=== PATIENT | female | born 1940 | race Caucasian/White ===

== ENCOUNTER 2019-05-22 09:53 | Outpatient (CLI) | payer MEDICARE, SELFPAY ==
[2019-05-22 10:10] LABS: Basophils Absolute Auto 0.05 K/mm3 (0.00-0.10); Basophils Percent Auto 0.6 % (0.0-1.0); Eosinophils Absolute Auto 0.16 K/mm3 (0.02-0.50); Eosinophils Percent Auto 1.8 % (1.0-6.0); Hemoglobin 14.9 g/dL (11.7-13.8); Immature Granulocyte Absolute 0.06 K/mm3 (0.00-0.00); Immature Granulocyte Percent A 0.7 % (0.0-0.0); Lymphocytes Absolute Auto 2.85 K/mm3 (1.10-4.50); Lymphocytes Percent Auto 32.2 % (18.0-42.0); Mean Corpuscular HGB Conc 33.1 g/dL (32.0-36.0); Mean Corpuscular Volume 93.8 fL (78.0-102.0); Mean Platelet Volume 10.8 fl (9.2-11.8); Monocytes Absolute Auto 1.02 K/mm3 (0.10-0.90); Monocytes Percent Auto 11.5 % (2.0-11.0); Neutrophils Absolute Auto 4.7 K/mm3 (1.7-7.2); Neutrophils Percent Auto 53.2 % (50.0-70.0); Platelet Count Result 197 K/mm3 (150-420); Red Cell Distribution Width 13.2 % (11.6-14.4); White Blood Count 8.8 K/mm3 (4.8-10.8)
[2019-05-22 10:21] LABS: Hemoglobin A1C 6.9 % (<5.7)
[2019-05-22 11:20] LABS: Alanine Aminotransferase 17 U/L (14-59); Albumin Level 3.9 g/dL (3.4-5.0); Alkaline Phosphatase 78 U/L (46-116); Anion Gap 17.4 mmol/L (7-16); Aspartate Amino Transferase 18 U/L (15-37); Bilirubin,Total 0.5 mg/dL (0.00-1.00); Blood Urea Nitrogen 18 mg/dL (7-18); Calcium 9.3 mg/dL (8.5-10.1); Carbon Dioxide 23 mmol/L (21-32); Chloride 109 mmol/L (98-108); Cholesterol 165 mg/dL (0-200); Estimated Glomerular Filt Rate 47; Glucose 67 mg/dL (70-99); HDL Direct 45 mg/dL (40-60); LDL Cholesterol Calculated 94 mg/dL (<130); Osmolality Calculated 299 mOsm/kg (285-295); Potassium 4.4 mmol/L (3.5-5.1); Sodium 145 mmol/L (136-145); Total Protein 7.2 g/dL (6.4-8.2); Triglycerides 131 mg/dL (0-150)
[2019-05-22 11:22] LABS: Thyroid Stimulating Hormone Reflex 0.66 u/IU/mL (0.36-3.74)
== END 2019-05-22 09:54 | disposition home or self-care (01) ==
LOC: CHSLAB 09:58
PROVIDERS: PCP Family Medicine; Visit Provider Family Medicine
DX: E03.9 Hypothyroidism, unspecified (principal); E11.9 Type 2 diabetes mellitus without complications; M10.9 Gout, unspecified
CPT/HCPCS: 36415; 80053; 80061; 83036; 84443; 84550; 85025

== ENCOUNTER 2021-01-16 04:35 | Emergency (ER) | payer MEDICARE, SELFPAY ==
--- NOTE | ~2021-01-16 | CT_ITS ---
EXAMINATION: CT brain wo con DATE: 01/16/2021 06:33 INDICATION: Fusion and weakness TECHNIQUE: Computed tomography (CT) of the head was performed without intravenous contrast. Sagittal and coronal reconstructions were performed. The mA was adjusted according to patient size. Iterative reconstruction technique was employed. The dose-length product was 605.33 mGy-cm. COMPARISON: head CT dated 01/19/2011 FINDINGS: Small region of encephalomalacia in the right occipital lobe consistent with chronic infarct. No acut e intracranial hemorrhage, acute infarction or abnormal extra axial fluid collection. There is mild s cattered white matter hypoattenuation consistent with chronic small vessel ischemic disease. Symmetri c prominence of the sulci and ventricles consistent with moderate age-appropriate diffuse cerebral vo lume loss. Ventricles are normal and symmetric. No mass/mass effect. Changes of bilateral intraocular lens replacement. The orbits and mastoid air cells are normal. Dependently layering mucus in the anna ateral sphenoid sinuses. Intracranial calcified cerebral atherosclerosis is noted. IMPRESSION: 1. 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 No acute intracranial process. 2. Age-related changes including moderate diffuse volume loss and mild scattered white matter hypoatt enuation consistent with chronic small vessel ischemic disease. Reviewed, dictated and finalized at location A. IMPRESSION: 1. 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 No acute intracranial process. 2. Age-related changes including moderate diffuse volume loss and mild scattere d white matter hypoattenuation consistent with chronic small vessel ischemic di sease.
[2021-01-16 04:40] VITALS: BP 116/66; PULSE 77; RESP 18; TEMP 36.4; O2SAT 97
--- NOTE | 2021-01-16 04:50 | ED.WEAKNESS ---
HPI - Weakness General Chief complaint: Urogenital-Female Stated complaint: weakness Source: patient, family and RN notes reviewed Mode of arrival: EMS Limitations: dementia History of Present Illness HPI Narrative: daughter states that patient has been more confused in the last few days. Tonight she seemed to slump over in a chair would not respond to her. On arrival she is alert and interactive. She does have a history dementia. She has stopped taking all of her diabetic medications. Her daughter states checked Accu-Chek at home which was 95. EMS also checked it and it was 117. At this time patient denies any pain. MD Complaint: generalized weakness Onset (ago): day(s) (3-5) Duration: progressively worsening Location: generalized Severity: moderate Relieving factors: none Exacerbating factors: none Associated symptoms: confusion Related Data Allergies Allergy/AdvReac Type Severity Reaction Status Date / Time diltiazem [Cardizem] Allergy Intermediate unknown Verified 04/29/20 08:06 Penicillins Allergy Intermediate Unknown Verified 04/29/20 08:06 Review of Systems Review of Systems: All systems reviewed & are unremarkable except as noted in HPI and below Constitutional: Constitutional: Denies chills and Denies fever(s) Cardiovascular: Cardiovascular: Denies chest pain Genitourinary: Genitourinary: Reports urinary incontinence (Not new) Neurologic: Reports headache(s) and Reports focal weakness [facility] Past Medical History Medical History Chronic a-fib Colitis Colonic polyp Dementia Gout attack Hypertension Hypothyroidism Obesity (BMI 30-39.9) Type 2 diabetes mellitus Social History Social History Smoking status: Former smoker Exam Const: General: no acute distress and alert Nutritional Appearance: thin Orientation/consciousness: confusion HENMT: Head: normal to inspection Ears: external ears normal Face and sinus: normal facial exam Mouth: Yes moist mucous membranes Eyes: Conjunctivae: conjunctivae normal Pupils: Equal, round and reactive pupils present EOM: EOMs intact bilaterally Neck: Neck: normal visual inspection Resp: Effort & Inspection: normal respiratory effort Auscultation: clear to auscultation bilaterally Cardio: Rate: regular rate Rhythm: regular rhythm GI: GI Palp: Yes Soft to palpation and No Tenderness to palpation present (GI) Auscultation: normal bowel sounds Back/Spine/Pelvis: Back: no CVA tenderness Skin: General skin exam: normal color Rashes: no rashes Neuro: General: moves all extremities, no meningeal signs and no focal motor deficits Speech: normal speech Extrem: General: normal to inspection and no clubbing, cyanosis or edema Psych: Appearance: disheveled Affect: normal affect Attitude: cooperative Course Course Emergency Course: Discussion with daughter regarding results of tests. There is no evidence of any CVA. Daughter says that she refuses to take any of her medications at home and has so for the last 6 months. I offered 24 hour observation in the hospital and she declined at this time. Urinalysis shows increased nitrites but otherwise no white blood cells will await culture results. I also explained to the daughter that if she did want to take her medications at home there was no use bringing her in the hospital if she refused to take medications from the nurses also. Strongly recommended that she get back on her thyroid medication blood thinners for atrial fibrillation. Follow-up with her primary care physician. MDM - Weakness Lab Data Attestation: I reviewed the patient's lab results. Imaging Data Radiologist's impression: See Report nothing acute Discharge Plan Discharge Clinical Impression: Weakness Hypothyroidism Qualifiers: Hypothyroidism type: acquired Qualified Code(s): E03.9 - Hypothyroidism, unspecified Dementia
[2021-01-16] MEDS: LACTATED RINGERS 1,000 ML 999 ML IV CONT (05:13)
[2021-01-16 05:30] LABS: Basophils Absolute Auto 0.05 K/mm3 (0.00-0.10); Basophils Percent Auto 0.6 % (0.0-1.0); Eosinophils Percent Auto 1.2 % (1.0-6.0); Hematocrit 49.6 % (35.0-42.0); Hemoglobin 15.8 g/dL (11.7-13.8); Immature Granulocyte Absolute 0.08 K/mm3 (0.00-0.00); Lymphocytes Absolute Auto 2.14 K/mm3 (1.10-4.50); Lymphocytes Percent Auto 25.8 % (18.0-42.0); Mean Corpuscular HGB Conc 31.9 g/dL (32.0-36.0); Mean Corpuscular Hemoglobin 30.1 pg (27.0-31.0); Mean Corpuscular Volume 94.5 fL (78.0-102.0); Mean Platelet Volume 10.6 fl (9.2-11.8); Monocytes Absolute Auto 0.73 K/mm3 (0.10-0.90); Monocytes Percent Auto 8.8 % (2.0-11.0); Neutrophils Absolute Auto 5.2 K/mm3 (1.7-7.2); Neutrophils Percent Auto 62.6 % (50.0-70.0); Platelet Count Result 231 K/mm3 (150-420); Red Blood Count 5.25 M/mm3 (4.20-5.40); Red Cell Distribution Width 13.5 % (11.6-14.4); White Blood Count 8.3 K/mm3 (4.8-10.8)
[2021-01-16 05:43] LABS: Appearance Urine Clear (Clear); Bilirubin Urine 1+ (Negative); Blood Urine 1+ (Negative); Glucose Urine UA Negative (Negative); Ketones Urine Negative (Negative); Leukocyte Esterase Ur Negative LEU/UL (Negative); Nitrate Urine Positive (Negative); Protein Urine 1+ (Negative); Specific Grav Ur >= 1.030 (1.010-1.020); pH Urine 5.5 (5.0-8.0)
[2021-01-16 05:44] LABS: Lactic Acid Reflex 2.2 mmol/L (0.4-2.0)
[2021-01-16 05:48] LABS: Add Urine Microscopic? YES; Bacteria Urine 3+ /hpf; Color Urine Dark Orange (Yellow); RBC Urine 0-2 /hpf (0-2); Squamous Epithelial Cell Urine None seen /hpf (Few); WBC Urine 0-3 /hpf (0-3)
[2021-01-16 05:49] LABS: Alanine Aminotransferase 17 U/L (14-59); Albumin Level 3.2 g/dL (3.4-5.0); Alkaline Phosphatase 107 U/L (46-116); Anion Gap 12 mmol/L (8-16); Aspartate Amino Transferase 18 U/L (15-37); Bilirubin,Total 0.7 mg/dL (0.00-1.00); Blood Urea Nitrogen 17 mg/dL (7-18); Calcium 8.8 mg/dL (8.5-10.1); Carbon Dioxide 26 mmol/L (21-32); Chloride 106 mmol/L (98-108); Estimated CRCL calculation 27 ml/min; Estimated Glomerular Filt Rate 44; Glucose 147 mg/dL (70-99); Osmolality Calculated 302 mOsm/kg (285-295); Potassium 3.7 mmol/L (3.5-5.1); Sodium 144 mmol/L (136-145); Thyroid Stimulating Hormone 36.54 uIU/mL (0.36-3.74); Total Protein 6.4 g/dL (6.4-8.2)
[2021-01-16 07:30] VITALS: BP 120/90; PULSE 81; RESP 16; O2SAT 97
== END 2021-01-16 07:35 | disposition home or self-care (01) ==
PROVIDERS: Emergency Provider Emergency Medicine; PCP Family Medicine
DX: R53.1 Weakness (principal); E03.9 Hypothyroidism, unspecified; F03.90 Unspecified dementia, unspecified severity, without behavioral disturbance, psychotic disturbance, mood disturbance, and anxiety; I10 Essential (primary) hypertension; E11.9 Type 2 diabetes mellitus without complications; Z87.891 Personal history of nicotine dependence; R82.90 Unspecified abnormal findings in urine
CPT/HCPCS: 36415; 51701; 70450; 80053; 81001; 83605; 84443; 85025; 87040; 87077; 87086; 87088; 87186; 96360; 99282; 99284; J7120

== ENCOUNTER 2021-02-16 10:27 | Outpatient (CLI) | payer MEDICARE, SELFPAY ==
[2021-02-16 11:32] LABS: Thyroid Stimulating Hormone Reflex 0.58 u/IU/mL (0.36-3.74)
[2021-02-16 11:52] LABS: Uric Acid 4.2 mg/dL (2.6-6.0)
== END 2021-02-16 10:28 | disposition home or self-care (01) ==
LOC: CHSLAB 10:30
PROVIDERS: PCP Family Medicine; Visit Provider Family Medicine
DX: M10.9 Gout, unspecified (principal); E03.9 Hypothyroidism, unspecified
CPT/HCPCS: 36415; 84443; 84550

== ENCOUNTER 2021-02-23 03:24 | Observation (INO) | payer MEDICARE, SELFPAY ==
[2021-02-23] VITALS (10 sets, daily range): BP systolic 112–186; BP diastolic 61–74; PULSE 57–77; RESP 17–22; TEMP 36.4–37.1; O2SAT 96–100; BMI 29.3
--- NOTE | ~2021-02-23 | XR_ITS ---
EXAMINATION: XR chest 2V DATE: 02/23/2021 06:16 INDICATION: Hypoglycemia. Proximal tachycardia. TECHNIQUE: frontal and lateral views of the chest were obtained. COMPARISON: Chest radiograph dated 11/28/2018 FINDINGS: The lungs remain clear with no focal airspace opacities, pulmonary edema, pleural effusion or pneumot horax. The cardiomediastinal silhouette is normal. Moderate thoracic spondylosis. IMPRESSION: 1. No acute cardiopulmonary disease. Reviewed, dictated and finalized at location A.
[2021-02-23 03:43] LABS: Glucose Point of Care 272 mg/dl (65-105)
--- NOTE | 2021-02-23 03:53 | ED_ITS ---
HPI - SOB/Dyspnea General Chief Complaint: Unspecified Stated Complaint: Hypoglycemia Time Seen by Provider: 02/23/21 03:53 Source: patient Mode of arrival: EMS Limitations: dementia Related Data Home Medications Medication Instructions Recorded Confirmed megestrol 40 mg PO DAILY 02/23/21 02/23/21 Allergies Allergy/AdvReac Type Severity Reaction Status Date / Time diltiazem [Cardizem] Allergy Intermediate unknown Verified 02/17/21 09:40 Penicillins Allergy Intermediate Unknown Verified 02/17/21 09:40 [facility] Past Medical History Medical History (Updated 02/17/21 @ 10:21 by Ty Flynn MD) Chronic a-fib Colitis Colonic polyp Dementia Gout attack Hypertension Hypothyroidism Obesity (BMI 30-39.9) Poor appetite Type 2 diabetes mellitus Urinary tract infection Social History Social History Smoking status: Former smoker Alcohol intake: never Substance use: never Substance use type: does not use MDM - SOB/Dyspnea Lab Data Labs: Lab Results 02/23/21 Range/Units 03:38 POC Capillary Glucose 272 H (65-105) mg/dl Discharge Plan Discharge Prescriptions: No Action megestrol 40 mg tablet 40 mg PO DAILY RF: 0 mirtazapine [Remeron] 15 mg tablet 15 mg PO QHS Qty: 30 RF: 3 sotalol 80 mg tablet 80 mg PO DAILY Qty: 90 RF: 1 metformin 500 mg tablet 500 mg PO BID Qty: 180 RF: 1 lisinopril 20 mg tablet 20 mg PO DAILY Qty: 90 RF: 1 allopurinol 300 mg tablet 300 mg PO DAILY Qty: 90 RF: 1 levothyroxine [Synthroid] 75 mcg tablet 75 mcg PO DAILY Qty: 90 RF: 2 Novolin 70/30 U-100 Insulin 100 unit/mL (70-30) suspension 35 unit SUB-Q BID Qty: 2 RF: 3 (DME) insulin syringe-needle U-100 0.5 mL 31 gauge x 5/16 syringe See Rx Instructions .ROUTE .MEDSUPPLY Qty: 100 RF: 2 (DME) BD Veo Insulin Syr (half unit) 0.3 mL 31 gauge x 15/64 syringe See Rx Instructions .ROUTE .MEDSUPPLY Qty: 300 RF: 3 (DME) insulin syringe-needle U-100 [BD Veo Insulin Syringe UF] 1 mL 31 gauge x 15/64 syringe See Rx Instructions .ROUTE .MEDSUPPLY Qty: 100 RF: 3 (DME) True Metrix Pro Test Strip Strip See Rx Instructions .ROUTE .MEDSUPPLY Qty: 100 RF: 1 (DME) True Metrix Glucose Test Strip Strip See Rx Instructions .ROUTE .MEDSUPPLY Qty: 100 RF: 2
--- NOTE | 2021-02-23 04:00 | PC.NURSE ---
pt arrived via [facility] due to low blood sugar of 25. EMS gave pt D10 500ml, pt's blood glucose 232 while en route to ER. pt AO to self and place only, EMS reporting that pt has dementia and AO x 2 is pt's baseline.
--- NOTE | 2021-02-23 04:03 | ED.AMS ---
HPI - Altered Mental Status General Chief Complaint: Unspecified Stated Complaint: Hypoglycemia Time Seen by Provider: 02/23/21 03:53 Source: patient and family Mode of arrival: EMS Limitations: dementia History of Present Illness HPI narrative: 80-year-old woman with a history of diabetes for which she takes insulin brought to the emergency department by EMS after her daughter checked on her this evening and found her acting abnormally. Accu-Chek at home showed 30 which did not respond to orange juice and sugar. her daughter lives with her and states that she has not been eating or drinking well and that this is been persisting trend for her. She has had no fever, cough or cold symptoms, vomiting, diarrhea, chest pain, difficulty breathing or sick exposures. She has not had the COVID vaccine. She received 500 cc of D10 in the field. complaint: altered mental status Onset (ago): hour(s) (1) Timing confirmed by: family member Severity: moderate Context: diabetes Associated symptoms: denies other symptoms Treatments prior to arrival: glucose Related Data Home Medications Medication Instructions Recorded Confirmed megestrol 40 mg PO DAILY 02/23/21 02/23/21 Allergies Allergy/AdvReac Type Severity Reaction Status Date / Time diltiazem [Cardizem] Allergy Intermediate unknown Verified 02/17/21 09:40 Penicillins Allergy Intermediate Unknown Verified 02/17/21 09:40 Review of Systems Review of Systems: All systems reviewed & are unremarkable except as noted in HPI and below Constitutional: Constitutional: Denies chills and Denies fever(s) ENT: Denies nasal congestion and Denies sore throat Cardiovascular: Cardiovascular: Denies chest pain and Denies radiating jaw, neck or arm pain Respiratory: Respiratory: Denies cough and Denies dyspnea Gastrointestinal: Gastrointestinal: Denies abdominal pain, Denies diarrhea, Denies nausea and Denies vomiting Genitourinary: Genitourinary: Denies nocturia and Denies dysuria Musculoskeletal: Musculoskeletal: Denies back pain, Denies arthralgias and Denies joint swelling Integumentary/Breasts: Skin/Breast: Denies pruritus, Denies erythema and Denies rash Neurologic: Denies vertigo, Denies dizziness, Denies syncope, Denies focal weakness, Denies numbness and Denies weakness Hematologic/Lymphatic: Hematologic/Lymphatic: Denies easy bleeding and Denies easy bruising Allergic/Immunologic: Allergic/Immunologic: Denies lip swelling and Denies throat swelling PMFSH Past Medical History Medical History Chronic a-fib Colitis Colonic polyp Dementia Gout attack Hypertension Hypothyroidism Obesity (BMI 30-39.9) Poor appetite Type 2 diabetes mellitus Urinary tract infection Social History Social History Smoking status: Former smoker Alcohol intake: never Substance use: never Substance use type: does not use Exam Const: General: healthy appearing, no acute distress and alert Limitations: no limitations HENMT: Head: normal to inspection Ears: external ears normal, TM's normal bilaterally and EAC's normal General nose exam: Normal nares present Face and sinus: normal facial exam Mouth: Yes moist mucous membranes Throat: posterior oropharynx normal Eyes: Conjunctivae: conjunctivae normal Pupils: Equal, round and reactive pupils present EOM: EOMs intact bilaterally Resp: Effort & Inspection: normal respiratory effort and not labored Auscultation: clear to auscultation bilaterally, no rales, no rhonchi and no wheezes Cardio: Rate: regular rate Rhythm: regular rhythm Heart sounds: no murmurs GI: GI Palp: Yes Soft to palpation, No Tenderness to palpation present (GI), No Guarding due to palpation present (GI) and No Palpable mass present Auscultation: normal bowel sounds Skin: General skin exam: normal color, no jaundice and no pallor Rashes: no jayce
[2021-02-23] MEDS: SODIUM CHLORIDE 0.9% IV 1,000 ML 999 ML IV CONT (04:25)
--- NOTE | 2021-02-23 04:31 | PC.NURSE ---
pt daughter at bedside at this time.
[2021-02-23 04:32] LABS: Basophils Absolute Auto 0.08 K/mm3 (0.00-0.10); Eosinophils Percent Auto 3.6 % (1.0-6.0); Hematocrit 49.4 % (35.0-42.0); Hemoglobin 15.7 g/dL (11.7-13.8); Immature Granulocyte Absolute 0.08 K/mm3 (0.00-0.00); Lymphocytes Absolute Auto 2.11 K/mm3 (1.10-4.50); Lymphocytes Percent Auto 25.1 % (18.0-42.0); Mean Corpuscular HGB Conc 31.8 g/dL (32.0-36.0); Mean Corpuscular Hemoglobin 29.8 pg (27.0-31.0); Mean Corpuscular Volume 93.7 fL (78.0-102.0); Monocytes Absolute Auto 0.85 K/mm3 (0.10-0.90); Monocytes Percent Auto 10.1 % (2.0-11.0); Neutrophils Percent Auto 59.2 % (50.0-70.0); Platelet Count Result 212 K/mm3 (150-420); Red Blood Count 5.27 M/mm3 (4.20-5.40); Red Cell Distribution Width 14.8 % (11.6-14.4); White Blood Count 8.4 K/mm3 (4.8-10.8)
--- NOTE | 2021-02-23 04:45 | PC.NURSE ---
pt had a run of 13 beats of V-tach, MD Cartagena notified, no new orders at this time
[2021-02-23 04:47] LABS: Alanine Aminotransferase 18 U/L (14-59); Albumin Level 3.2 g/dL (3.4-5.0); Alkaline Phosphatase 110 U/L (46-116); Anion Gap 12 mmol/L (8-16); Aspartate Amino Transferase 15 U/L (15-37); Bilirubin,Total 0.6 mg/dL (0.00-1.00); Blood Urea Nitrogen 11 mg/dL (7-18); CRP < 0.5 mg/dL (0.0-0.9); Calcium 8.5 mg/dL (8.5-10.1); Carbon Dioxide 24 mmol/L (21-32); Chloride 104 mmol/L (98-108); Estimated CRCL calculation 31 ml/min; Estimated Glomerular Filt Rate 44; Glucose 257 mg/dL (70-99); Osmolality Calculated 298 mOsm/kg (285-295); Potassium 4.2 mmol/L (3.5-5.1); Sodium 140 mmol/L (136-145); Total Protein 6.7 g/dL (6.4-8.2)
[2021-02-23 04:51] LABS: Lactic Acid Reflex 2.7 mmol/L (0.4-2.0)
[2021-02-23 05:00] LABS: Glucose Point of Care 261 mg/dl (65-105)
[2021-02-23 05:39] LABS: Add Urine Microscopic? YES; Appearance Urine Clear (Clear); Bilirubin Urine Negative (Negative); Blood Urine 1+ (Negative); Color Urine Light Yellow (Yellow); Glucose Urine UA 2+ (Negative); Ketones Urine Trace (Negative); Leukocyte Esterase Ur 3+ LEU/UL (Negative); Nitrate Urine Positive (Negative); Protein Urine Negative (Negative); Specific Grav Ur 1.025 (1.010-1.020); Urobilinogen Urine 0.2 mg/dL (0.2-1.0)
[2021-02-23 05:47] LABS: Bacteria Urine 4+ /hpf; Squamous Epithelial Cell Urine None seen /hpf (Few); WBC Urine >75 /hpf (0-3)
[2021-02-23 05:59] LABS: Partial Thromboplastin Time 27.3 SEC (23.90-30.70)
--- NOTE | 2021-02-23 06:24 | ECG_ITS ---
Measurements Intervals Mountain Rate: 66 P: 35 KS: 180 QRS: -11 QRSD: 89 T: 2 QT: 410 QTc: 432 Interpretive Statements SINUS RHYTHM LEFT VENTRICULAR HYPERTROPHY CANNOT RULE OUT SEPTAL INFARCT, AGE INDETERMINATE BORDERLINE T WAVE ABNORMALITY- ANTEROLAT/INF LEADS BASELINE ARTIFACT- I, II, III, AVR, AVL, AVF ABNORMAL ECG Electronically Signed On 02-23-2021 6:39:21 CDT by Jayro Hilliard D.O.
[2021-02-23 06:30] LABS: Glucose Point of Care 278 mg/dl (65-105)
[2021-02-23 06:36] LABS: NT Pro B Type Natriuretic Pept 525 pg/mL (0-450); Troponin I 19.9 ng/L (0.00-60.4)
[2021-02-23 06:47] LABS: Magnesium 1.6 mg/dL (1.8-2.4)
[2021-02-23 07:31] LABS: Reflex Lactic Acid Yes or No Add Lactic
[2021-02-23 07:31] LABS: Glucose Point of Care 276 mg/dl (65-105)
[2021-02-23 07:44] LABS: SARS-CoV-2 Ag Negative (Negative)
[2021-02-23 07:52] LABS: Troponin I 21.4 ng/L (0.00-60.4)
--- NOTE | 2021-02-23 08:10 | PC.NURSE ---
Pt received to room 209 from ED. Pt assisted with 2 nurses to bed from stretch. Pt connected to telemetry monitoring and vital signs obtained. Pty oriented to room and educated director of corporate sponsorships light system. Will monitor frequently as pt is confused.
[2021-02-23 08:19] LABS: Lactic Acid 1.7 mmol/L (0.4-2.0)
[2021-02-23] MEDS: INSULIN HUMAN ISOPHAN/REGULAR 70/30 (*BKC) 100 UNITS/ML 20 UNITS SUB-Q ×2 (08:47→18:11)
[2021-02-23] MEDS: MEGESTROL ACETATE (*CHEMO) 40 MG TABLET PO (08:48)
[2021-02-23] MEDS: lisinopriL 20 MG TABLET PO (08:48)
[2021-02-23] MEDS: ENOXAPARIN 30 MG/0.3 ML SYRINGE SUB-Q (08:48)
[2021-02-23] MEDS: SOTALOL HCL 80 MG TABLET PO (08:49)
[2021-02-23] MEDS: allopurinoL 300 MG TABLET PO (08:49)
[2021-02-23] MEDS: LEVOTHYROXINE SODIUM 75 MCG TABLET PO (08:49)
[2021-02-23 09:05] LABS: Glucose Point of Care 275 mg/dl (65-105)
--- NOTE | 2021-02-23 11:04 | PM.IMHP ---
H&P: HPI History of Present Illness Date/Time: 02/23/21 11:04 this is a 80-year-old female who presented to our emergency department via EMS due to hypoglycemia. Patient has a past medical history of A. fib, dementia, gout, hypertension, hypothyroidism, type 2 diabetes and history of UTIs. Patient is a poor historian due to dementia all information obtained from medical records or family member. According to patient's patient was lethargic after checking blood sugar her blood sugars were in the 30s. According to her when her blood sugars is low they gave her orange juice with a baby's syringe. After she was given orange juice via syringe her blood sugars remain below 60, at that time EMS was called. Patient was given D 10 with little improvement. she was then transported to our emergency. Patient's WBCs 8.4, hemoglobin 15.7, hematocrit 49.4, sodium 140, potassium 4.2, BUN 11, creatinine 1.17, glucose 257, lactic acid 1.7, magnesium 1.6, AST 15, ALT 18, troponin 21.4, BUN 525, UA positive for glucose, ketones, blood, nitrate, leukocytes esterase and bacteria. Chest x-ray unremarkable, EKG sinus rhythm with a heart rate of 66 patient will be treated for UTI and hypoglycemia and arrhythmia. Observation Time spent 60 minutes Chief Complaint: Hypoglycemia, lethargic Review of Systems Review of Systems: ROS unobtainable: Yes unobtainable due to mental status (hx of dementia) [facility] Past Medical History Medical History Chronic a-fib Colitis Colonic polyp Dementia Gout attack Hypertension Hypothyroidism Obesity (BMI 30-39.9) Poor appetite Type 2 diabetes mellitus Urinary tract infection Social History Social History Smoking status: Never smoker Alcohol intake: never Substance use: never Substance use type: does not use Spiritual care concerns: No Meds Home Medications and Allergies Home Medications Medication Instructions Recorded Confirmed Type insulin human U-100 NPH-regulr 35 unit SUB-Q BID #2 vial 07/29/19 02/23/21 Rx 70-30 mix 100 unit/mL subcutaneous susp insulin syringe-needle U-100 0.5 #100 each 11/12/19 02/23/21 Rx mL 31 gauge x 5/16 insulin syr/ndl U100 half alisha #300 ea 05/18/20 02/23/21 Rx insulin syringe-needle U-100 1 mL #100 ea 05/24/20 02/23/21 Rx 31 gauge x 15/64 blood sugar diagnostic #100 each 08/18/20 02/23/21 Rx blood sugar diagnostic #100 each 12/27/20 02/23/21 Rx allopurinol 300 mg tablet 300 mg PO DAILY #90 tablet 02/17/21 02/23/21 Rx levothyroxine 75 mcg tablet 75 mcg PO DAILY #90 tablet 02/17/21 02/23/21 Rx lisinopril 20 mg tablet 20 mg PO DAILY #90 tablet 02/17/21 02/23/21 Rx metformin 500 mg tablet 500 mg PO BID #180 tablet 02/17/21 02/23/21 Rx mirtazapine 15 mg tablet 15 mg PO QHS #30 tablet 02/17/21 02/23/21 Rx sotalol 80 mg tablet 80 mg PO DAILY #90 tablet 02/17/21 02/23/21 Rx megestrol 40 mg PO DAILY 02/23/21 02/23/21 History Allergies Allergy/AdvReac Type Severity Reaction Status Date / Time diltiazem [Cardizem] Allergy Intermediate unknown Verified 02/17/21 09:40 Penicillins Allergy Intermediate Unknown Verified 02/17/21 09:40 Vital Signs Vital Signs - 24 hr 02/23/21 03:56 02/23/21 04:26 02/23/21 04:56 Temperature 97.7 F Pulse Rate 63 Respiratory Rate 19 Blood Pressure 186/71 H Pulse Oximetry 99 98 100 02/23/21 07:16 02/23/21 08:10 02/23/21 08:30 Temperature 98.2 F Pulse Rate 65 68 70 Respiratory Rate 18 19 Blood Pressure 152/61 H 170/62 H Pulse Oximetry 96 98 02/23/21 08:49 Temperature Pulse Rate 68 Respiratory Rate Blood Pressure Pulse Oximetry Exam Narrative: GENERAL: Patient is lethargic but arousable in no apparent distress. HEAD: normocephalic, atraumatic. EYES: PERRL. Sclera clear/white. Vision is grossly intact. EARS: External ears normal, auditory canals clear and withou
[2021-02-23 11:10] LABS: Troponin I 21.5 ng/L (0.00-60.4)
--- NOTE | 2021-02-23 11:30 | ECHO_ITS ---
Patient Info Name: Carole Pavon Age: 80 years : 1940 Gender: Female Ht: 62 in Wt: 160 lbs BSA: 1.81 m2 BP: 170 / 62 mmHg Exam Date: 02/23/2021 10:50 AM Exam Location: [facility] Patient Status: Inpatient Admit Date: 02/23/2021 Staff Ordering Physician: Mateus Cartagena MD Streetcar Conductor: Enrique Melchor RDCS, RT Attending Provider: Mateus Cartagena MD Referring Physician: Osiel COELLO; Exam Type: CA echo doppler color flow Study Info Indications I49.8 - Other specified cardiac arrhythmias Complete two-dimensional, color flow and Doppler transthoracic echocardiogram is performed. Summary 1. Complete two-dimensional, color flow and Doppler transthoracic echocardiogram is performed. 2. Technically suboptimal study due to poor sonographic images. 3. Left ventricular chamber dimension is normal. 4. Left ventricular systolic function is normal, estimated at 60-65%. 5. The left ventricular diastolic function is grade I diastolic dysfunction. 6. E/e' 4 is not elevated. 7. 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 8. There is mild aortic valve sclerosis. Left Ventricle E/e' 4 is not elevated. Technically suboptimal study due to poor sonographic images. Left ventricular chamber dimension is normal. Left ventricular systolic function is normal, estimated at 60-65%. The left ventricular diastolic function is grade I diastolic dysfunction. Right Ventricle Right ventricular chamber dimension is not well visualized. Left Atria Left atrial chamber dimension is normal. Right Atria Right atrial chamber dimension is not well visualized. 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 Aortic Valve The aortic valve is trileaflet. There is mild aortic valve sclerosis. There is no aortic valve stenosis. There is no aortic valve regurgitation. Pulmonic Valve There is no pulmonic regurgitation. Mitral Valve There is no mitral valve stenosis. There is no mitral valve regurgitation. Tricuspid Valve There is no tricuspid valve regurgitation. Pericardium/Pleural There is no pericardial effusion. Inferior Vena Cava Normal inferior vena cava with >50% collapse upon inspiration consistent with normal right atrial pressure, 5 mmHg. Aorta The aortic root size at the sinus of Valsalva is normal. Left Ventricular Outflow Tract Name Value Normal LVOT 2D LVOT Diameter 2.0 cm LVOT Doppler LVOT Peak Velocity 79 cm/s LVOT Peak Gradient 3 mmHg LVOT Mean Gradient 2 mmHg LVOT VTI 17 cm LVOT VTI/AV VTI Ratio 0.6 LVOT Stroke Volume 53 ml Mitral Valve Name Value Normal MV Doppler MV Decel [place]
[2021-02-23 11:46] LABS: Glucose Point of Care 205 mg/dl (65-105)
[2021-02-23] MEDS: MAGNESIUM SULF 2 GM/WATER 50ML 2 GM/50 ML BAG IVPB (13:08)
[2021-02-23] MEDS: SODIUM CHLORIDE 0.9% IV 1,000 ML 100 ML IV CONT (13:08)
--- NOTE | 2021-02-23 15:37 | PCPTNOTE ---
No Care Plan initiated due to patient being discharged today.
[2021-02-23 16:49] LABS: Glucose Point of Care 181 mg/dl (65-105)
--- NOTE | 2021-02-23 19:10 | PC.NURSE ---
Completed bedside change of shift report and updated board. Patient is sleeping comfortably in bed, with no signs of pain or discomfort. Previous shift nurse stated that patient's baseline is alert and oriented to self only. Patient is incontinent, and takes her medications crushed in applesauce. Patient is on telemetry, and has a history of chronic atrial fibrillation.
[2021-02-23] MEDS: MIRTAZAPINE 15 MG TABLET PO (21:17)
[2021-02-23 21:43] LABS: Glucose Point of Care 187 mg/dl (65-105)
[2021-02-24] VITALS: BP 145/63; PULSE 58; PULSE 63; RESP 24; TEMP 36.9; O2SAT 95
[2021-02-24] MEDS: SODIUM CHLORIDE 0.9% IV 1,000 ML 100 ML IV CONT (02:15)
[2021-02-24 04:00] VITALS: BP 167/69; PULSE 56; PULSE 58; RESP 18; TEMP 36.6; O2SAT 97
[2021-02-24] MEDS: LEVOTHYROXINE SODIUM 75 MCG TABLET PO (06:33)
[2021-02-24 06:40] LABS: Glucose Point of Care 91 mg/dl (65-105)
[2021-02-24 08:00] VITALS: BP 160/68; PULSE 50; PULSE 54; RESP 14; TEMP 36.2; O2SAT 94
[2021-02-24 08:47] VITALS: PULSE 63
[2021-02-24] MEDS: lisinopriL 20 MG TABLET PO (08:47)
[2021-02-24] MEDS: allopurinoL 300 MG TABLET PO (08:47)
[2021-02-24] MEDS: SOTALOL HCL 80 MG TABLET PO (08:47)
[2021-02-24] MEDS: ENOXAPARIN 30 MG/0.3 ML SYRINGE SUB-Q (08:47)
[2021-02-24] MEDS: MEGESTROL ACETATE (*CHEMO) 40 MG TABLET PO (08:47)
[2021-02-24 10:36] LABS: Hematocrit 39.1 % (35.0-42.0); Hemoglobin 12.9 g/dL (11.7-13.8); Mean Corpuscular Hemoglobin 30.4 pg (27.0-31.0); Mean Corpuscular Volume 92.2 fL (78.0-102.0); Mean Platelet Volume 11.1 fl (9.2-11.8); Platelet Count Result 167 K/mm3 (150-420); Red Blood Count 4.24 M/mm3 (4.20-5.40); Red Cell Distribution Width 14.9 % (11.6-14.4); White Blood Count 6.8 K/mm3 (4.8-10.8)
--- NOTE | 2021-02-24 10:55 | PCOTNOTE ---
Per [employer]EC[employer]IVE [employer], cancel OT evaluation as patient is at baseline and will be returning home. MS
[2021-02-24 10:58] LABS: Alanine Aminotransferase 16 U/L (14-59); Albumin Level 2.4 g/dL (3.4-5.0); Alkaline Phosphatase 87 U/L (46-116); Anion Gap 10 mmol/L (8-16); Aspartate Amino Transferase 14 U/L (15-37); Bilirubin,Total 0.5 mg/dL (0.00-1.00); Blood Urea Nitrogen 10 mg/dL (7-18); Carbon Dioxide 22 mmol/L (21-32); Chloride 109 mmol/L (98-108); Estimated CRCL calculation 34 ml/min; Estimated Glomerular Filt Rate 48; Glucose 227 mg/dL (70-99); Osmolality Calculated 298 mOsm/kg (285-295); Potassium 4.3 mmol/L (3.5-5.1); Sodium 141 mmol/L (136-145); Total Protein 5.3 g/dL (6.4-8.2)
[2021-02-24 10:59] LABS: Magnesium 1.6 mg/dL (1.8-2.4)
--- NOTE | 2021-02-24 11:10 | P.DS_ITS ---
DS: Admitting Diagnosis Discharge Date 02/24/2021 <MICHAEL Brooks - Last Filed: 02/24/21 11:31> Admitting Diagnosis Hypoglycemia, arrhythmia <MICHAEL Brooks - Last Filed: 02/24/21 11:31> DS: Discharge Diagnosis Discharge Diagnosis (1) Hypoglycemia associated with diabetes: Code(s): E11.649 - Type 2 diabetes mellitus with hypoglycemia without coma <MICHAEL Brooks - Last Filed: 02/24/21 11:31> Status: Acute <Ramsey FrancMICHAEL Whittington - Last Filed: 02/24/21 11:31> Assessment and Plan: * Resolved * Possibly secondary to infection * per family member bs at home was 30, after sugar and orange juice 29 after ems treatment 60 at hospital 272>261>278>276>275 * Continue home medication along with hypoglycemic protocol sliding scale and Accu-Cheks * Will adjust medication as needed Discharge Consult for development educator at [place] will be completed. Spoke with Dr. Flynn he will complete the paperwork for the consult. Spoke with patient's daughter who is her caregiver she has agreed to the consult <MICHAEL Brooks - Last Filed: 02/24/21 11:31> (2) Acute UTI: Code(s): N39.0 - Urinary tract infection, site not specified <MICHAEL Brooks - Last Filed: 02/24/21 11:31> Status: Acute <MICHAEL Brooks - Last Filed: 02/24/21 11:31> Assessment and Plan: * Patient with a history of UTIs * UA indicates possible UTI * Patient on Bactrim renal dosed * Levaquin avoided due to patient arrhythmia * Patient allergic to penicillin avoided * UA culture pending * CRP and lactic acid within normal limits Discharge DC with Bactrim <MICHAEL Brooks - Last Filed: 02/24/21 11:31> (3) Wide-complex tachycardia: Code(s): I47.2 - Ventricular tachycardia <MICHAEL Brooks - Last Filed: 02/24/21 11:31> Status: Acute <MICHAEL Brooks - Last Filed: 02/24/21 11:31> Assessment and Plan: * Patient with 6-second run of wide-complex tachycardia in the ED asymptomatic * Dr. Hilliard tie maker recommend 24-hour observation with telemetry * Continue telemetry * trop 21.4>21.5 Discharge No arrhythmias this hospital stay. Patient does see Dr. Hilliard tie maker, according to her daughter she has an appointment in the near future <MICHAEL Brooks - Last Filed: 02/24/21 11:31> (4) Dementia: Qualifiers: Dementia behavioral disturbance: without behavioral disturbance Dementia type: unspecified type Qualified Code(s): F03.90 - Unspecified dementia without behavioral disturbance <MICHAEL Brooks - Last Filed: 02/24/21 11:31> Code(s): F03.90 - Unspecified dementia without behavioral disturbance <MICHAEL Brooks - Last Filed: 02/24/21 11:31> Status: Acute <MICHAEL Brooks - Last Filed: 02/24/21 11:31> (5) Gout: Code(s): M10.9 - Gout, unspecified <MICHAEL Brooks - Last Filed: 02/24/21 11:31> Status: Acute <MICHAEL Brooks - Last Filed: 02/24/21 11:31> Assessment and Plan: * Continue allopurinol <MICHAEL Brooks - Last Filed: 02/24/21 11:31> (6) Hypothyroidism: Qualifiers: Hypothyroidism type: acquired Qualified Code(s): E03.9 - Hypothyroidism, unspecified <MICHAEL Brooks - Last Filed: 02/24/21 11:31> Code(s): E03.9 - Hypothyroidism, unspecified <MICHAEL Brooks - Last Filed: 02/24/21 11:31> Status: Chronic <MICHAEL Brooks - Last Filed:
--- NOTE | 2021-02-24 11:10 | PM.DS ---
DS: Admitting Diagnosis Discharge Date 02/24/2021 <MICHAEL Brooks - Last Filed: 02/24/21 11:31> Admitting Diagnosis Hypoglycemia, arrhythmia <Ramsey FrancMICHAEL Whittington - Last Filed: 02/24/21 11:31> DS: Discharge Diagnosis Discharge Diagnosis (1) Hypoglycemia associated with diabetes: Code(s): E11.649 - Type 2 diabetes mellitus with hypoglycemia without coma <MICHAEL Brooks - Last Filed: 02/24/21 11:31> Status: Acute <Ramsey Juju MICHAEL Betancourt - Last Filed: 02/24/21 11:31> Assessment and Plan: Resolved Possibly secondary to infection per family member bs at home was 30, after sugar and orange juice 29 after ems treatment 60 at hospital 272>261>278>276>275 Continue home medication along with hypoglycemic protocol sliding scale and Accu-Cheks Will adjust medication as needed Discharge Consult for tobacco educator at [facility] will be completed. Spoke with Dr. Flynn he will complete the paperwork for the consult. Spoke with patient's daughter who is her caregiver she has agreed to the consult <MICHAEL Brooks - Last Filed: 02/24/21 11:31> (2) Acute UTI: Code(s): N39.0 - Urinary tract infection, site not specified <MICHAEL Brooks - Last Filed: 02/24/21 11:31> Status: Acute <MICHAEL Brooks - Last Filed: 02/24/21 11:31> Assessment and Plan: Patient with a history of UTIs UA indicates possible UTI Patient on Bactrim renal dosed Levaquin avoided due to patient arrhythmia Patient allergic to penicillin avoided UA culture pending CRP and lactic acid within normal limits Discharge DC with Bactrim <MICHAEL Brooks - Last Filed: 02/24/21 11:31> (3) Wide-complex tachycardia: Code(s): I47.2 - Ventricular tachycardia <MICHAEL Brooks - Last Filed: 02/24/21 11:31> Status: Acute <MICHAEL Brooks - Last Filed: 02/24/21 11:31> Assessment and Plan: Patient with 6-second run of wide-complex tachycardia in the ED asymptomatic Dr. Hilliard adzing and boring machine helper recommend 24-hour observation with telemetry Continue telemetry trop 21.4>21.5 Discharge No arrhythmias this hospital stay. Patient does see Dr. Hilliard adzing and boring machine helper, according to her daughter she has an appointment in the near future <PIPE BrooksC - Last Filed: 02/24/21 11:31> (4) Dementia: Qualifiers: Dementia behavioral disturbance: without behavioral disturbance Dementia type: unspecified type Qualified Code(s): F03.90 - Unspecified dementia without behavioral disturbance <CAROL Brooks-C - Last Filed: 02/24/21 11:31> Code(s): F03.90 - Unspecified dementia without behavioral disturbance <CAROL Brooks-C - Last Filed: 02/24/21 11:31> Status: Acute <CAROL Brooks-C - Last Filed: 02/24/21 11:31> (5) Gout: Code(s): M10.9 - Gout, unspecified <CAROL Brooks-C - Last Filed: 02/24/21 11:31> Status: Acute <Ramsey FrancCAROL Whittington-C - Last Filed: 02/24/21 11:31> Assessment and Plan: Continue allopurinol <CAROL Brooks-C - Last Filed: 02/24/21 11:31> (6) Hypothyroidism: Qualifiers: Hypothyroidism type: acquired Qualified Code(s): E03.9 - Hypothyroidism, unspecified <Ramsey FrancCAROL Whittington-C - Last Filed: 02/24/21 11:31> Code(s): E03.9 - Hypothyroidism, unspecified <CAROL Brooks-C - Last Filed: 02/24/21 11:31> Status: Chronic <Ramsey FrancCAROL Whittington-C - Last Filed: 02/24/21 11:31> Assessment and Plan: Continue Synthroid <CAROL Brooks-C - Last Filed: 02/24/21 11:31> (7) Type 2 diabetes mellitus: Code(s): E11.9 - Type 2 diabetes mellitus without complications <MICHAEL Brooks - Last Filed: 02/24/21 11:31> Status: Chronic <MICHAEL Brooks - Last Filed:
--- NOTE | 2021-02-24 11:50 | PC.NURSE ---
Discharge instructions reviewed with patient's daughter, Maddy. All questions answered. Pt escorted via wheelchair to front entrance and assisted into private vehicle.
--- NOTE | 2021-02-27 15:14 | PC.NURSE ---
states the patient received and understood her discharge instructions. also states you did a fine job, we trust jose .
== END 2021-02-24 11:50 | disposition home or self-care (01) ==
LOC: CHSED 07:14 → CHS2ND 07:27
PROVIDERS: Nurse Practitioner; Admitting Provider Emergency Medicine; Emergency Provider Emergency Medicine; PCP Family Medicine; Visit Provider Emergency Medicine
DX: E11.649 Type 2 diabetes mellitus with hypoglycemia without coma (principal); N39.0 Urinary tract infection, site not specified; I47.2 Ventricular tachycardia; I48.20 Chronic atrial fibrillation, unspecified; I10 Essential (primary) hypertension; E03.9 Hypothyroidism, unspecified; E83.42 Hypomagnesemia; E66.9 Obesity, unspecified; M10.9 Gout, unspecified; R63.0 Anorexia; F03.90 Unspecified dementia, unspecified severity, without behavioral disturbance, psychotic disturbance, mood disturbance, and anxiety; Z20.822 Contact with and (suspected) exposure to COVID-19; Z87.891 Personal history of nicotine dependence; Z86.010 Personal history of colon polyps
CPT/HCPCS: 36415; 71046; 80053; 81001; 82948; 83605; 83735; 83880; 84484; 85025; 85027; 85610; 85730; 86140; 87040; 87086; 87088; 87426; 93005; 93306; 96360; 96361; 96365; 96366; 96372; 97161; 99285; A9270; C9803; G0378; J1650; J1815; J3475; J7030

== ENCOUNTER 2021-03-16 00:42 | Inpatient (IN) | payer MEDICARE, SELFPAY ==
[2021-03-16] VITALS (9 sets, daily range): BP systolic 101–166; BP diastolic 73–80; PULSE 51–62; RESP 15–18; TEMP 36.2–36.8; O2SAT 96–98; BMI 26.6
--- NOTE | ~2021-03-16 | XR_ITS ---
EXAMINATION: XR chest 2V DATE: 03/16/2021 01:52 INDICATION: Weakness and confusion TECHNIQUE: AP and lateral views of the chest are obtained. COMPARISON: 02/23/2021 FINDINGS: The lungs are free of acute opacities. There is no pleural effusion or pneumothorax. The ca rdiomediastinal silhouette is normal. There is moderate thoracic spondylosis. IMPRESSION: 1. No acute cardiopulmonary abnormality. Reviewed, dictated and finalized at location A. R MAKER
--- NOTE | ~2021-03-16 | CT_ITS ---
EXAMINATION: CT brain wo con INDICATION: Altered mental status and weakness COMPARISON: 01/16/2021 TECHNIQUE: Standard unenhanced head CT. The dose-length product (DLP) was 605.33 mGy-cm. The mA was a djusted according to patient size. Iterative reconstruction technique was employed. FINDINGS: There is no acute intraparenchymal hemorrhage. No evidence of mass lesion. No evidence of a cute infarction. 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 There is moderate periventricular and subcortical hypodensity probably related to small vessel ischemic disease. There is moderate promine nce of the sulci and ventricles related to cerebral atrophy. Intracranial calcified cerebral atherosc lerosis is noted. There are no extra-axial collections. There is no mass effect or midline shift. Chayo nges in the globes are likely from ocular lens surgery. The visualized sinuses and mastoid air cells are well aerated. IMPRESSION: 1. 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 2. Age related findings. Reviewed, dictated and finalized at location A. NESS MANAGER [employer]
--- NOTE | 2021-03-16 00:54 | ED.AMS ---
HPI - Altered Mental Status General Chief Complaint: Altered Mental Status Stated Complaint: LOW BLOOD SURGAR Time Seen by Provider: 03/16/21 00:56 Source: family Mode of arrival: EMS Limitations: altered mental status History of Present Illness HPI narrative: 80-year-old woman brought to the emergency department after being found unconscious at home. Accu-Lisy was found to 25 and so EMS was called. EMS started D10 and prior to arrival measured blood sugar at 324. Patient's family states that for the last day or 2 she has not been herself, not eating or drinking, not speaking clearly, and less active. She had a fall 2 days ago. Her daughter states that she has had no cough or cold symptoms, fever, vomiting, diarrhea, trouble breathing or complaints of chest pain. MD complaint: altered mental status Onset (ago): day(s) (2) Timing confirmed by: family member Severity: moderate Consistency of symptoms: getting Worse Context: trauma and diabetes Treatments prior to arrival: glucose Related Data Allergies Allergy/AdvReac Type Severity Reaction Status Date / Time diltiazem [Cardizem] Allergy Intermediate unknown Verified 03/16/21 01:58 Penicillins Allergy Intermediate Unknown Verified 03/16/21 01:58 Review of Systems Review of Systems: ROS unobtainable: Yes unobtainable due to mental status PMFSH Past Medical History Medical History Chronic a-fib Colitis Colonic polyp Dementia Gout attack Hypertension Hypothyroidism Obesity (BMI 30-39.9) Poor appetite Type 2 diabetes mellitus Urinary tract infection Social History Social History Smoking status: Never smoker Alcohol intake: never Substance use: never Substance use type: does not use Spiritual care concerns: No Exam Const: General: no acute distress Other: Oriented to person. Mildly somnolent. HENMT: Head: normal to inspection Ears: external ears normal, TM's normal bilaterally and EAC's normal General nose exam: Normal nares present Face and sinus: normal facial exam Mouth: Yes moist mucous membranes Throat: posterior oropharynx normal Eyes: Conjunctivae: conjunctivae normal Pupils: Equal, round and reactive pupils present EOM: EOMs intact bilaterally Resp: Effort & Inspection: normal respiratory effort and labored Auscultation: clear to auscultation bilaterally, rales, rhonchi and wheezes Cardio: Rate: bradycardic Rhythm: regular rhythm Heart sounds: Murmur heart sound present GI: GI Palp: Yes Soft to palpation, No Tenderness to palpation present (GI) and No Guarding due to palpation present (GI) Auscultation: normal bowel sounds Skin: General skin exam: normal color, no jaundice and no pallor Rashes: no rashes Neuro: General: moves all extremities, no focal motor deficits and CN's II-XI intact bilaterally Speech: normal speech Extrem: General: normal to inspection and no clubbing, cyanosis or edema Psych: Appearance: grossly normal and well kempt Affect: normal affect Attitude: cooperative Thought content: Yes Normal thought content present Course Vital Signs Vital signs: Vital Signs Temperature 36.6 C 03/16/21 01:02 Pulse Rate 51 L 03/16/21 01:02 Respiratory Rate 15 03/16/21 01:02 Blood Pressure 101/74 03/16/21 01:02 Pulse Oximetry 96 03/16/21 01:02 Temperature 36.6 C 03/16/21 01:02 Pulse Rate 51 L 03/16/21 01:02 Respiratory Rate 15 03/16/21 01:02 Blood Pressure 101/74 03/16/21 01:02 Pulse Oximetry 96 03/16/21 01:02 MDM - Altered Mental Status Differential Diagnosis Differential diagnosis: Likely altered mental status, delirium, dementia, hyponatremia, sepsis and other (UTI, hypoglycemia) Lab Data Result diagrams: 03/16/21 01:28 03/16/21 01:28 Labs: Lab Results 03/16/21 03/16/21 03/16/21 Range/Units 01:02 01:22 01:28 WBC 10.6 (4.8-10.
--- NOTE | 2021-03-16 01:02 | ECG_ITS ---
Measurements Intervals [place] Rate: 51 P: [place]: 0 QRS: -27 QRSD: 102 T: 65 QT: 492 QTc: 456 Interpretive Statements SINUS BRADYCARDIA BORDERLINE AV CONDUCTION DELAY BORDERLINE R WAVE PROGRESSION, ANTERIOR LEADS CONSIDER INFERIOR INFARCT, AGE INDETERMINATE BORDERLINE ST-T WAVE ABNORMALITY- ANT/HIGH LAT LEADS BASELINE ARTIFACT- V6 ABNORMAL ECG Electronically Signed On 03-17-2021 8:03:59 RECONCILIATION SPECIALIST by Jayro Hilliard D.O.
[2021-03-16 01:34] LABS: Basophils Absolute Auto 0.12 K/mm3 (0.00-0.10); Basophils Percent Auto 1.1 % (0.0-1.0); Eosinophils Absolute Auto 0.22 K/mm3 (0.02-0.50); Eosinophils Percent Auto 2.1 % (1.0-6.0); Hematocrit 47.9 % (35.0-42.0); Hemoglobin 15.4 g/dL (11.7-13.8); Immature Granulocyte Absolute 0.11 K/mm3 (0.00-0.00); Lymphocytes Absolute Auto 2.73 K/mm3 (1.10-4.50); Lymphocytes Percent Auto 25.8 % (18.0-42.0); Mean Corpuscular HGB Conc 32.2 g/dL (32.0-36.0); Mean Corpuscular Hemoglobin 29.9 pg (27.0-31.0); Mean Platelet Volume 11.6 fl (9.2-11.8); Monocytes Absolute Auto 1.19 K/mm3 (0.10-0.90); Monocytes Percent Auto 11.2 % (2.0-11.0); Neutrophils Absolute Auto 6.2 K/mm3 (1.7-7.2); Neutrophils Percent Auto 58.8 % (50.0-70.0); Platelet Count Result 238 K/mm3 (150-420); Red Blood Count 5.15 M/mm3 (4.20-5.40); Red Cell Distribution Width 15.3 % (11.6-14.4); White Blood Count 10.6 K/mm3 (4.8-10.8)
[2021-03-16 01:53] LABS: Lactic Acid Reflex 4.1 mmol/L (0.4-2.0)
[2021-03-16 01:56] LABS: Glucose Point of Care 170 mg/dl (65-105)
[2021-03-16 01:56] LABS: Alanine Aminotransferase 16 U/L (14-59); Albumin Level 3.4 g/dL (3.4-5.0); Alkaline Phosphatase 120 U/L (46-116); Anion Gap 15 mmol/L (8-16); Aspartate Amino Transferase 16 U/L (15-37); Bilirubin,Total 0.5 mg/dL (0.00-1.00); Blood Urea Nitrogen 46 mg/dL (7-18); Calcium 9.3 mg/dL (8.5-10.1); Carbon Dioxide 21 mmol/L (21-32); Chloride 107 mmol/L (98-108); Estimated CRCL calculation 9 ml/min; Estimated Glomerular Filt Rate 10; Glucose 176 mg/dL (70-99); Osmolality Calculated 311 mOsm/kg (285-295); Potassium 4.4 mmol/L (3.5-5.1); Salicylate 1.6 mg/dL (2.8-20.0); Sodium 143 mmol/L (136-145); Thyroid Stimulating Hormone 0.94 uIU/mL (0.36-3.74); Total Protein 7.1 g/dL (6.4-8.2); Troponin I 44.5 ng/L (0.00-60.4)
[2021-03-16 01:57] LABS: Acetaminophen < 2 ug/mL (10-30)
--- NOTE | 2021-03-16 02:25 | PC.NURSE ---
covid nasal swab sent to lab
[2021-03-16] MEDS: SODIUM CHLORIDE 0.9% IV 1,000 ML 999 ML IV CONT (02:30)
[2021-03-16 02:32] LABS: Appearance Urine Clear (Clear); Bilirubin Urine 1+ (Negative); Color Urine Yellow (Yellow); Glucose Urine UA 3+ (Negative); Ketones Urine Trace (Negative); Leukocyte Esterase Ur Trace LEU/UL (Negative); Nitrate Urine Negative (Negative); Protein Urine 1+ (Negative); Specific Grav Ur >= 1.030 (1.010-1.020); Urobilinogen Urine 0.2 mg/dL (0.2-1.0); pH Urine 5.5 (5.0-8.0)
[2021-03-16 02:39] LABS: NT Pro B Type Natriuretic Pept 2886 pg/mL (0-450)
[2021-03-16 02:44] LABS: Add Urine Microscopic? YES; Bacteria Urine 3+ /hpf; Blood Urine Trace-Intact (Negative); Mucus Urine Moderate /lpf; RBC Urine 0-2 /hpf (0-2); Squamous Epithelial Cell Urine Occasional /hpf (Few); WBC Urine 0-3 /hpf (0-3)
[2021-03-16 03:06] LABS: SARS-CoV-2 RNA PCR Negative (Negative)
[2021-03-16 03:09] LABS: Glucose Point of Care 137 mg/dl (65-105)
[2021-03-16] MEDS: DEXTROSE 5%/0.9% SOD CHL 1,000 ML 100 ML IV CONT (03:45)
--- NOTE | 2021-03-16 03:57 | PC.NURSE ---
pt admitted as an inpatient to room 203, D5 at 100ml/hr running, and transported in bed.
[2021-03-16 04:30] LABS: Reflex Lactic Acid Yes or No Add Lactic
--- NOTE | 2021-03-16 04:54 | ADMGEN ---
This patient, Carole Pavon, was admitted to 2nd Floor Room 203-1. Patient/family oriented to hospital policies and general routines including ID bracelet, bed and alarms, visiting hours, pain management, procedures, bathroom and other care routines, personal items, smoking policy, room service/diet, and visiting hours. Information on how to activate the Rapid Response Team has been discussed. Patient/Family are encouraged to report perceived risks to care and to ask questions if they do not understand what they are told or what they should do. Pt is on tele showing S tomeka at this time, bed alarms on and pt has call morales at her side and encouraged to call if needed. Pt voices no c/o at this time, warm blankets given, IVF infusing as per order.
[2021-03-16 05:50] LABS: Lactic Acid 3.9 mmol/L (0.4-2.0)
[2021-03-16] MEDS: LEVOTHYROXINE SODIUM 75 MCG TABLET PO (06:29)
--- NOTE | 2021-03-16 06:30 | PC.NURSE ---
Pt given sips of water to take morning med and raina. well s any choking or difficulty swallowing noted. Pt repositioned to her side per request, call morales in reach.
[2021-03-16 08:43] LABS: Glucose Point of Care 173 mg/dl (65-105)
[2021-03-16] MEDS: allopurinoL 300 MG TABLET PO (09:44)
[2021-03-16] MEDS: MAGNESIUM OXIDE 400 MG TABLET PO (09:44)
--- NOTE | 2021-03-16 09:49 | STIPEVAL ---
Thank you for referring Carole Pavon to [facility].? The patient is scheduled to be seen for therapy?5-7x/week for 2 weeks. Please review, sign, date and return this plan of care EDGAR. I agree with and certify that the following plan of care is medically necessary. Referring Physician Date Admitting Provider: Mateus Cartagena MD Attending Provider: Mateus Cartagena MD Referring Provider: JASON Inpatient Evaluation Start: 03/16/21 09:22 Freq: Status: Active Protocol: Document 03/16/21 08:45 MJB (Rec: 03/16/21 09:48 MJB [id number]) Therapy Assessment Status Assessment Status Assessment Status Evaluation Prior Level of Function Home Setting Living Situation With Relatives Support Available Local Family Support Cargiver Responsibilities Comment Patient lives at home with daughter Prior Swallow Level Prior Intake Method Oral Prior Diet Regular (Level 7 Diet) Prior Liquid Consistency Thin (Level 0 Diet) Prior Cognition/Communication Prior Communication Level Mild Impairment Prior Cognitive Function Demented,Memory Impaired Pain Assessment Timing of Pain Assessment Timing of Pain Assessment Assessment Self Report Self Report Pain Level 0 Pain Score Pain Score 0: Self Report Bedside Swallow Evaluation General Reports Dysphagia Yes Onset of Dysphagia 1-2 days prior to hospitalization History of Feeding Problems Dehydration,Weight Loss Reported Difficult Consistencies Unable to Identify Meal Observed Breakfast Intake Method Prior to Swallow Oral Evaluation Diet Prior to Swallow Evaluation Regular, Level 7 Liquid Consistency Prior to Swallow Thin (0) Evaluation Cognition During Swallowing Confused Orthodontic/Dental Appliances Edentulous,Missing Teeth Consistency Solid Consistency 5 mL Other Swallow Amount scrambled eggs Method of Presentation Spoon Behaviors Observed Lengthy Oral Transit Time, Multiple Swallows Used,Oral Residue,Throat Clearing Occurrence of Coughing None Vocal Quality After Swallowing Clear Swallow Palpation Results Delayed Triggering,Reduced Laryngeal Elevation Pureed Consistency 5 mL Other Swallow Amount apple sauce Method of Presentation Spoon Behaviors Observed Multiple Swallows Used,Throat Clearing Occurrence of Coughing None Vocal Quality After Swallowing Clear Swallow Palpation Results Delayed Triggering,Reduced
[2021-03-16 12:09] LABS: Glucose Point of Care 405 mg/dl (65-105)
[2021-03-16 12:12] LABS: Basophils Absolute Auto 0.06 K/mm3 (0.00-0.10); Basophils Percent Auto 0.6 % (0.0-1.0); Eosinophils Absolute Auto 0.09 K/mm3 (0.02-0.50); Eosinophils Percent Auto 0.9 % (1.0-6.0); Hematocrit 43.5 % (35.0-42.0); Hemoglobin 13.6 g/dL (11.7-13.8); Immature Granulocyte Absolute 0.08 K/mm3 (0.00-0.00); Immature Granulocyte Percent A 0.8 % (0.0-0.0); Lymphocytes Absolute Auto 2.07 K/mm3 (1.10-4.50); Mean Corpuscular HGB Conc 31.3 g/dL (32.0-36.0); Mean Corpuscular Hemoglobin 30.2 pg (27.0-31.0); Mean Corpuscular Volume 96.7 fL (78.0-102.0); Mean Platelet Volume 11.9 fl (9.2-11.8); Monocytes Absolute Auto 1.05 K/mm3 (0.10-0.90); Monocytes Percent Auto 10.7 % (2.0-11.0); Neutrophils Absolute Auto 6.5 K/mm3 (1.7-7.2); Platelet Count Result 182 K/mm3 (150-420); Red Cell Distribution Width 15.7 % (11.6-14.4); White Blood Count 9.8 K/mm3 (4.8-10.8)
[2021-03-16 12:32] LABS: Anion Gap 13 mmol/L (8-16); Blood Urea Nitrogen 38 mg/dL (7-18); Calcium 8.3 mg/dL (8.5-10.1); Carbon Dioxide 18 mmol/L (21-32); Chloride 107 mmol/L (98-108); Estimated CRCL calculation 10 ml/min; Estimated Glomerular Filt Rate 13; Glucose 399 mg/dL (70-99); Magnesium 2.4 mg/dL (1.8-2.4); Osmolality Calculated 312 mOsm/kg (285-295); Potassium 5.2 mmol/L (3.5-5.1); Sodium 138 mmol/L (136-145); Troponin I 26.4 ng/L (0.00-60.4)
--- NOTE | 2021-03-16 12:37 | PM.IMHP ---
H&P: HPI History of Present Illness Date/Time: 03/16/21 12:37 is a poor historian. was available in the room to answer questions. He states that his usually takes her insulin in the morning and the evening. She was ordered Insulin NPH-Regular 70/30 and normally gets 35 units BID. In the morning it was found that the Pt had a glucose value above 600 per the . He administered 40 Units of the 70/30 in the morning. At lunch time he states the glucose was 300 and he gave her 35 Units of the 70/30. At dinner time her glucose was about 150 and he administered 25 Units of the 70/30. The states that at about 11 PM he heard his yell. He checked her glucose again and found it to be 28 which prompted him to call EMS. I asked the if changing the Insulin dose was something he and his discussed with the provider and he stated No but that over the past 20+ years he has learned what to do for her blood glucose when it is elevated. I discussed with the not to adjust the insulin on his own any more. It was explained how the short and intermediate insulins work to lower glucose. Pt stated he understood. Pt is able to say her name, her birthday, and with a little prompting she knew today was Thanksgiving, the year is 2020. She stated she hurts all over but was not able to be specific about where was worse or any other information. <JOSE Espino - Last Filed: 03/16/21 13:41> Chief Complaint: Hypglycemia <JOSE Espino - Last Filed: 03/16/21 13:41> Review of Systems Review of Systems: ROS unobtainable: Yes unobtainable due to mental status <JOSE Espino - Last Filed: 03/16/21 13:41> [facility] Past Medical History Medical History: Medical History Chronic a-fib Colitis Colonic polyp Dementia Gout attack Hypertension Hypothyroidism Obesity (BMI 30-39.9) Poor appetite Type 2 diabetes mellitus Urinary tract infection <JOSE Espino - Last Filed: 03/16/21 13:41> Social History Social History: Social History Smoking status: Unknown if ever smoked Alcohol intake: never Substance use: never Substance use type: does not use Spiritual care concerns: No <JOSE Espino - Last Filed: 03/16/21 13:41> Meds Home Medications and Allergies Home medications: Home Medications Medication Instructions Recorded Confirmed Type insulin human U-100 NPH-regulr 35 unit SUB-Q BID #2 vial 07/29/19 03/16/21 Rx 70-30 mix 100 unit/mL subcutaneous susp insulin syringe-needle U-100 0.5 #100 each 11/12/19 03/16/21 Rx mL 31 gauge x 5/16 insulin syr/ndl U100 half alisha #300 ea 05/18/20 03/16/21 Rx insulin syringe-needle U-100 1 mL #100 ea 05/24/20 03/16/21 Rx 31 gauge x 15/64 blood sugar diagnostic #100 each 08/18/20 03/16/21 Rx blood sugar diagnostic #100 each 12/27/20 03/16/21 Rx allopurinol 300 mg tablet 300 mg PO DAILY #90 tablet 02/17/21 03/16/21 Rx levothyroxine 75 mcg tablet 75 mcg PO DAILY #90 tablet 02/17/21 03/16/21 Rx mirtazapine 15 mg tablet 15 mg PO QHS #30 tablet 02/17/21 03/16/21 Rx lisinopril 20 mg tablet 20 mg PO DAILY #90 tablet 03/01/21 03/16/21 Rx magnesium oxide 400 mg PO DAILY #30 tablet 03/01/21 03/16/21 Rx megestrol 40 mg tablet 40 mg PO DAILY #30 tablet 03/01/21 03/16/21 Rx metformin 500 mg tablet 500 mg PO BID #180 tablet 03/01/21 03/16/21 Rx <JOSE Espino - Last Filed: 03/16/21 13:41> Allergies/Adverse reactions: Allergies Allergy/AdvReac Type Severity Reaction Status Date / Time diltiazem [Cardizem] Allergy Intermediate unknown Verified 03/16/21 01:58 Penicillins Allergy Intermediate Unknown Verified 03/16/21 01:58 <Stan Long APN-C - Last Filed: 03/16/21 13:41> Vital Signs Vital Signs - 24 hr 03/16/21 01:02 03/16/21 03:55 03/16/21 04:00 Temperat
[2021-03-16 12:49] LABS: NT Pro B Type Natriuretic Pept 2088 pg/mL (0-450)
[2021-03-16 16:44] LABS: Glucose Point of Care 323 mg/dl (65-105)
[2021-03-16] MEDS: SODIUM CHLORIDE 0.9% IV 1,000 ML 100 ML IV CONT (16:58)
[2021-03-16] MEDS: INSULIN HUMAN ISOPHAN/REGULAR 70/30 (*BKC) 100 UNITS/ML 35 UNITS SUB-Q (16:59)
[2021-03-16] MEDS: MIRTAZAPINE 15 MG TABLET PO (20:47)
[2021-03-16 20:55] LABS: Glucose Point of Care 301 mg/dl (65-105)
[2021-03-17] VITALS (9 sets, daily range): BP systolic 137–157; BP diastolic 61–70; PULSE 56–66; RESP 16–18; TEMP 36.6–36.8; O2SAT 96–99
[2021-03-17] MEDS: SODIUM CHLORIDE 0.9% IV 1,000 ML 100 ML IV CONT (02:54)
[2021-03-17 05:21] LABS: Hematocrit 38.4 % (35.0-42.0); Hemoglobin 12.3 g/dL (11.7-13.8); Mean Corpuscular Hemoglobin 30.1 pg (27.0-31.0); Mean Corpuscular Volume 94.1 fL (78.0-102.0); Mean Platelet Volume 12.1 fl (9.2-11.8); Platelet Count Result 167 K/mm3 (150-420); Red Blood Count 4.08 M/mm3 (4.20-5.40); Red Cell Distribution Width 15.5 % (11.6-14.4); White Blood Count 7.5 K/mm3 (4.8-10.8)
[2021-03-17 05:41] LABS: Lactic Acid Reflex 1.2 mmol/L (0.4-2.0)
[2021-03-17 05:47] LABS: Anion Gap 11 mmol/L (8-16); Blood Urea Nitrogen 33 mg/dL (7-18); Calcium 8.1 mg/dL (8.5-10.1); Carbon Dioxide 21 mmol/L (21-32); Chloride 107 mmol/L (98-108); Estimated CRCL calculation 13 ml/min; Estimated Glomerular Filt Rate 18; NT Pro B Type Natriuretic Pept 1572 pg/mL (0-450); Osmolality Calculated 314 mOsm/kg (285-295); Potassium 5.2 mmol/L (3.5-5.1); Sodium 139 mmol/L (136-145)
[2021-03-17 05:50] LABS: Glucose 438 mg/dL (70-99)
[2021-03-17] MEDS: INSULIN HUMAN REGULAR (*BKC) 100 UNITS/ML 10 UNITS SUB-Q (06:04)
[2021-03-17] MEDS: LEVOTHYROXINE SODIUM 75 MCG TABLET PO (06:45)
[2021-03-17 08:00] LABS: Glucose Point of Care 305 mg/dl (65-105)
[2021-03-17 11:54] LABS: Glucose Point of Care 143 mg/dl (65-105)
--- NOTE | 2021-03-17 14:43 | PC.NURSE ---
Pt's daughter at bedside this afternoon. She is concerned that her mother is not awake, not eating and not drinking water. She has been this way for several days since her blood sugar dropped to 25 and the family called EMS. Blood sugars are ranging from over 400 thia AM to 142 at noon. Daughter asked about what could be done if pt does not eat or drink. RN suggested that the pt and family should have a detailed conversation about what she wants done at this point. RN notified Ty PERRY about what the daughter had said. Pt continues to be sleeping and not very oriented.
--- NOTE | 2021-03-17 15:07 | PM.IMPN ---
Progress Note: A&P Assessment and Plan (1) Hypoglycemia due to insulin: Code(s): E16.0 - Drug-induced hypoglycemia without coma; T38.3X5A - Adverse effect of insulin and oral hypoglycemic [antidiabetic] drugs, initial encounter <JOSE Espino - Last Filed: 03/17/21 15:24> Status: Acute <JOSE Espino - Last Filed: 03/17/21 15:24> Assessment and Plan: D5NS was discontinued and replaced with NS at 100 ml/h, Glucose has been from 137 to 405 D5NS just DC'ed after noon labs obtained, Pt's mentation seems to be at baseline according to the . 03/17/2021 Insulin changes this AM as glucose was 300s-400 and was requiring additional SQ insulin, noon glucose was 143 and the Pt is more alert, will continue to monitor. <JOSE Espino - Last Filed: 03/17/21 15:24> (2) Acute renal failure: Qualifiers: Acute renal failure type: unspecified Qualified Code(s): N17.9 - Acute kidney failure, unspecified <JOSE Espino - Last Filed: 03/17/21 15:24> Code(s): N17.9 - Acute kidney failure, unspecified <JOSE Espino - Last Filed: 03/17/21 15:24> Status: Acute <JOSE Espino - Last Filed: 03/17/21 15:24> Assessment and Plan: Cr in ER was 4.20 and currently 3.39, will continue hydration with NS at 100/h and watch for fluid overload, monitoring fluid balance, Metformin and Lisinopril held 03/17/2021 Improving Cr now at 2.61, Pt still does not eat or drink very much, IVF continue. <JOSE Espino - Last Filed: 03/17/21 15:24> (3) CHF (congestive heart failure): Qualifiers: Heart failure chronicity: unspecified Heart failure type: unspecified Qualified Code(s): I50.9 - Heart failure, unspecified <JOSE Espino - Last Filed: 03/17/21 15:24> Code(s): I50.9 - Heart failure, unspecified <SYEDA EspinoN-C - Last Filed: 03/17/21 15:24> Status: Acute <Stan Long MCAT TUTOR-C - Last Filed: 03/17/21 15:24> Assessment and Plan: BNP was 2886 and now 2088, mild diffuse rales, peripheral edema without pitting minimal, will monitor respiratory status, fluid overload, and BNP during her stay, Troponin 44.5 and now 26.4 03/17/2021 BNP improved to 1572, lungs clear, no peripheral edema, renal injury contributory <Stan Long MCAT TUTOR-C - Last Filed: 03/17/21 15:24> (4) AMS (altered mental status): Qualifiers: Altered mental status type: somnolence Qualified Code(s): R40.0 - Somnolence <Stan Long MCAT TUTOR-C - Last Filed: 03/17/21 15:24> Code(s): R41.82 - Altered mental status, unspecified <Stan Long MCAT TUTOR-C - Last Filed: 03/17/21 15:24> Status: Acute <SYEDA EspinoN-C - Last Filed: 03/17/21 15:24> Assessment and Plan: Speech Therapy Evaluation and recommendations were for Minced Moist food with thin liquids, Per Pt seems to be at baseline 03/17/2021 Improved, Pt able to hold a conversation <Stan Long MCAT TUTOR-C - Last Filed: 03/17/21 15:24> (5) Acute dehydration: Code(s): E86.0 - Dehydration <Stan Long MCAT TUTOR-C - Last Filed: 03/17/21 15:24> Status: Acute <Stan Long MCAT TUTOR-C - Last Filed: 03/17/21 15:24> Assessment and Plan: Pt had 1 Liter NS in the ER with IVF infusing, Pt does not drink much, She does need feeding assistance, Pt with Dementia 03/17/2021 resolving, +2.2 L total fluids, will continue to monitor <Stan Long MCAT TUTOR-C - Last Filed: 03/17/21 15:24> (6) Hypomagnesemia: Code(s): E83.42 - Hypomagnesemia <JOSE Espino - Last Filed: 03/17/21 15:24> Status: Acute <JOSE Espino - Last Filed: 03/17/21 15:24> Assessment and Plan: Pt getting MagOxide, current Magnesium 2.4 <JOSE Espino - Last Filed: 03/17/21 15:24> (7) Lactic acidosis: Code(s): E87.2 -
[2021-03-17 18:11] LABS: Glucose Point of Care 323 mg/dl (65-105)
[2021-03-17] MEDS: MIRTAZAPINE 15 MG TABLET PO (21:49)
[2021-03-17 22:25] LABS: Glucose Point of Care 390 mg/dl (65-105)
--- NOTE | 2021-03-17 22:34 | PC.NURSE ---
notified that patient's blood sugar at HS was 390. MD ordered Humalog 3units SQ now x1, then recheck blood sugar at 0200.
[2021-03-18] VITALS: BP 188/85; PULSE 71; RESP 19; TEMP 36.3; O2SAT 98
[2021-03-18 02:42] LABS: Glucose Point of Care 353 mg/dl (65-105)
--- NOTE | 2021-03-18 02:50 | PC.NURSE ---
Pt bg level rechecked and results were notified to the charge nurse and physician. MD ordered 6 units of regular humalog subcutaneously and bg level to be rechecked at 6 am.
[2021-03-18 03:34] VITALS: PULSE 60
[2021-03-18 04:20] VITALS: BP 166/66; PULSE 61; RESP 20; TEMP 36.6; O2SAT 97
--- NOTE | 2021-03-18 04:50 | PC.NURSE ---
Pt had NS running without being charted as given. Infusion completed at 4:50 and a new bag to be hung/started for ordered continuous fluids.
[2021-03-18] MEDS: SODIUM CHLORIDE 0.9% IV 1,000 ML 100 ML IV CONT (04:54)
[2021-03-18] MEDS: LEVOTHYROXINE SODIUM 75 MCG TABLET PO (06:22)
[2021-03-18 06:40] LABS: Hematocrit 38.2 % (35.0-42.0); Hemoglobin 12.2 g/dL (11.7-13.8); Mean Corpuscular HGB Conc 31.9 g/dL (32.0-36.0); Mean Corpuscular Volume 94.1 fL (78.0-102.0); Platelet Count Result 169 K/mm3 (150-420); Red Blood Count 4.06 M/mm3 (4.20-5.40); Red Cell Distribution Width 15.2 % (11.6-14.4); White Blood Count 7.4 K/mm3 (4.8-10.8)
[2021-03-18 06:54] LABS: Lactic Acid Reflex 4.2 mmol/L (0.4-2.0)
[2021-03-18 07:01] LABS: Glucose Point of Care 206 mg/dl (65-105)
[2021-03-18 07:20] LABS: Anion Gap 14 mmol/L (8-16); Blood Urea Nitrogen 27 mg/dL (7-18); Calcium 7.9 mg/dL (8.5-10.1); Carbon Dioxide 19 mmol/L (21-32); Chloride 107 mmol/L (98-108); Estimated CRCL calculation 17 ml/min; Estimated Glomerular Filt Rate 24; Glucose 257 mg/dL (70-99); Osmolality Calculated 304 mOsm/kg (285-295); Potassium 4.2 mmol/L (3.5-5.1); Sodium 140 mmol/L (136-145)
[2021-03-18 07:23] LABS: NT Pro B Type Natriuretic Pept 1373 pg/mL (0-450)
[2021-03-18 08:00] VITALS: BP 168/64; PULSE 57; PULSE 61; RESP 18; TEMP 36.6; O2SAT 97
[2021-03-18 08:12] LABS: Glucose Point of Care 222 mg/dl (65-105)
[2021-03-18 09:34] LABS: Reflex Lactic Acid Yes or No Add Lactic
[2021-03-18] MEDS: INSULIN HUMAN ISOPHAN/REGULAR 70/30 (*BKC) 100 UNITS/ML 40 UNITS SUB-Q (09:38)
[2021-03-18] MEDS: MAGNESIUM OXIDE 400 MG TABLET PO (09:39)
[2021-03-18] MEDS: allopurinoL 300 MG TABLET PO (09:39)
--- NOTE | 2021-03-18 09:53 | PM.DS ---
DS: Admitting Diagnosis Discharge Date 03/18/2021 <JOSE Espino - Last Filed: 03/18/21 11:08> Admitting Diagnosis Hypoglycemia, ARF, AMS, Dehydration <JOSE Espino - Last Filed: 03/18/21 11:08> DS: Discharge Diagnosis Discharge Diagnosis (1) Hypoglycemia due to insulin: Code(s): E16.0 - Drug-induced hypoglycemia without coma; T38.3X5A - Adverse effect of insulin and oral hypoglycemic [antidiabetic] drugs, initial encounter <JOSE Espino - Last Filed: 03/18/21 11:08> Status: Acute <JOSE Espino - Last Filed: 03/18/21 11:08> Assessment and Plan: D5NS was discontinued and replaced with NS at 100 ml/h, Glucose has been from 137 to 405 D5NS just DC'ed after noon labs obtained, Pt's mentation seems to be at baseline according to the . 03/17/2021 Insulin changes this AM as glucose was 300s-400 and was requiring additional SQ insulin, noon glucose was 143 and the Pt is more alert, will continue to monitor. 03/18/2021 glycemic control is better, Pt home on hospice but needs to follow up with PCP. <JOSE Espino - Last Filed: 03/18/21 11:08> (2) Acute renal failure: Qualifiers: Acute renal failure type: unspecified Qualified Code(s): N17.9 - Acute kidney failure, unspecified <JOSE Espino - Last Filed: 03/18/21 11:08> Code(s): N17.9 - Acute kidney failure, unspecified <JOSE Espino - Last Filed: 03/18/21 11:08> Status: Acute <JOSE Espino - Last Filed: 03/18/21 11:08> Assessment and Plan: Cr in ER was 4.20 and currently 3.39, will continue hydration with NS at 100/h and watch for fluid overload, monitoring fluid balance, Metformin and Lisinopril held 03/17/2021 Improving Cr now at 2.61, Pt still does not eat or drink very much, IVF continue. 03/18/2021 Improving Cr 2.01, encouraged Pt to drink more water <JOSE Espino - Last Filed: 03/18/21 11:08> (3) CHF (congestive heart failure): Qualifiers: Heart failure chronicity: unspecified Heart failure type: unspecified Qualified Code(s): I50.9 - Heart failure, unspecified <JOSE Espino - Last Filed: 03/18/21 11:08> Code(s): I50.9 - Heart failure, unspecified <JOSE Espino - Last Filed: 03/18/21 11:08> Status: Acute <JOSE Espino - Last Filed: 03/18/21 11:08> Assessment and Plan: BNP was 2886 and now 2088, mild diffuse rales, peripheral edema without pitting minimal, will monitor respiratory status, fluid overload, and BNP during her stay, Troponin 44.5 and now 26.4 03/17/2021 BNP improved to 1572, lungs clear, no peripheral edema, renal injury contributory 03/18/2021 BNP improved to 1373, lungs clear no peripheral edema <JOSE Espino - Last Filed: 03/18/21 11:08> (4) AMS (altered mental status): Qualifiers: Altered mental status type: somnolence Qualified Code(s): R40.0 - Somnolence <JOSE Espino - Last Filed: 03/18/21 11:08> Code(s): R41.82 - Altered mental status, unspecified <JOSE Espino - Last Filed: 03/18/21 11:08> Status: Acute <JOSE Espino - Last Filed: 03/18/21 11:08> Assessment and Plan: Speech Therapy Evaluation and recommendations were for Minced Moist food with thin liquids, Per Pt seems to be at baseline 03/17/2021 Improved, Pt able to hold a conversation 03/18/2021 seems to have resolved, still slow to respond but is able to respond appropriately <JOSE Espino - Last Filed: 03/18/21 11:08> (5) Acute dehydration: Code(s): E86.0 - Dehydration <JOSE Espino - Last Filed: 03/18/21 11:08> Status: Acute <JOSE Espino - Last Filed: 03/18/21 11:08> Assessment and Plan: Pt had 1 Liter NS in the ER with IVF infusing, Pt does not drink much, She does n
[2021-03-18 10:35] LABS: Lactic Acid 5.6 mmol/L (0.4-2.0)
[2021-03-18 12:00] VITALS: PULSE 64
[2021-03-18 12:23] LABS: Glucose Point of Care 213 mg/dl (65-105)
--- NOTE | 2021-03-18 13:38 | PC.NURSE ---
[facility] called with transfer home to her residence. at this time they will transport. hospice aware of dc. at bedside and is aware of her going home.
--- NOTE | 2021-03-18 14:40 | PC.NURSE ---
Discharge instructions reviewed with patient and . [facility] to meet patient at home upon arrival. [facility] transporting patient from hospital to home
--- NOTE | 2021-03-20 13:02 | PC.NURSE ---
Daughter states they received and understood the discharge instructions. Daughter also states everything was just fine.
== END 2021-03-18 14:40 | disposition hospice, home (50) | DRG 638 ==
LOC: CHSED 03:03 → CHS2ND 09:47
PROVIDERS: Nurse Practitioner Family; Admitting Provider Emergency Medicine; Emergency Provider Emergency Medicine; PCP Family Medicine; Visit Provider Emergency Medicine
DX: E11.649 Type 2 diabetes mellitus with hypoglycemia without coma (principal); I48.20 Chronic atrial fibrillation, unspecified; T38.3X5A Adverse effect of insulin and oral hypoglycemic [antidiabetic] drugs, initial encounter; I11.0 Hypertensive heart disease with heart failure; I50.9 Heart failure, unspecified; N17.9 Acute kidney failure, unspecified; E86.0 Dehydration; E83.42 Hypomagnesemia; E03.9 Hypothyroidism, unspecified; Z20.822 Contact with and (suspected) exposure to COVID-19; R63.0 Anorexia; F03.90 Unspecified dementia, unspecified severity, without behavioral disturbance, psychotic disturbance, mood disturbance, and anxiety; Z86.010 Personal history of colon polyps; Z79.4 Long term (current) use of insulin; Z79.84 Long term (current) use of oral hypoglycemic drugs
CPT/HCPCS: 36415; 70450; 71046; 80048; 80053; 80307; 81001; 82948; 83605; 83735; 83880; 84443; 84484; 85025; 85027; 92526; 92610; 93005; 96360; 99285; A9270; C9803; J1815; J7030; J7042; U0003; U0005